=== PATIENT | female | born 1970 | race Caucasian/White ===

== ENCOUNTER 2018-03-08 15:56 | Inpatient (IN) | payer MEDICAID ==
[~2018-03-08] VITALS: Ht 175.3 cm; Wt 83.9 kg
--- NOTE | ~2018-03-08 | MORECARE ---
CASE MANAGEMENT DISCHARGE SUMMARY PATIENT: SANCHEZ BONILLA DANDY UNIT: [id number] ADM DATE: 03/08/18 AGE: 47 : 70 SEX: F ROOM/BED: D.7221 AUTHOR: DEYANIRA,DOC PHYSICIAN: REFERRING PHYSICIAN: FRANKY ELDRIDGE MD DATE OF SERVICE: 03/10/18 Discharge Plan Patient Name: SANCHEZ BONILLA Facility: [facility]:[employer] : 1970 Planned Disposition: Home Anticipated Discharge Date: 03/10/18 Discharge Date: Expected LOS: 2 Initial Reviewer: [email or web address] Initial Review Date: 03/10/2018 Generated: 03/10/18 5:29 pm Comments DCP- Discharge Planning Updated by [email or web address]: Gabriel Naidu on 03/10/18 3:[address] Patient Name: SANCHEZ BONILLA Admission Status: Elective Accout number: [id number] Admission Date: 03-08-2018 : 1970 Admission Diagnosis: Attending: FRANKY ELDRIDGE Current LOS: 2 Anticipated DC Date: 03-10-2018 Planned Disposition: Home [facility] Discharge Planning Comments: CM MET WITH PT IN ROOM TO DISCUSS DISCHARGE PLANNING AND NEEDS. PT REPORTS LIVING AT HOME INDEPENDENTLY WITH HER BOYFRIEND, STEVEN, . PT HAS NO MEDICAL EQUIPMENT AND NO OUTSIDE SERVICES ASSISTING IN THE HOME. CM DISCUSSED AVAILABILITY OF HOME HEALTH, REHAB SERVICES AND MEDICAL EQUIPMENT. PT DENIES DISCHARGE NEEDS, REPORTS HER BOYFRIEND WILL PICK HER UP FOR DISCHARGE HOME. Change Person: Gabriel Naidu DCPIA - Discharge Planning Initial Assessment Updated by [email or web address]: Gabriel Naidu on 03/10/18 4:23 pm * Is the patient Alert and Oriented? Yes * How many steps to enter\exit or inside your home? * PCP DR. ELDRIDGE * Pharmacy [facility] * Preadmission Environment Home with Family * ADLs Independent * Equipment None * Other Equipment NO MEDICAL EQUIPMENT PROVIDER PREFERENCE * List name and contact numbers for known caregivers / representatives who currently or will assist patient after discharge: STEVEN GERMAN, SPOUSE, CJ WEBB, DTR, * Verbal permission to speak to the caregivers and representatives has been obtained from the patient. N/A * Community resources currently utilized None * Please name any agencies selected above. NONE * Additional services required to return to the preadmission environment? No * Can the patient safely return to the preadmission environment? Yes * Has this patient been hospitalized within the prior 30 days at any hospital? No Patient Name: SANCHEZ BONILLA Page [id number] at 1629 All edits/amendments must be made on the electronic document DICTATION DATE: 03/10/181627 TASSEL MAKING MACHINE OPERATOR: NELSON 03/10/181627 RPT#: [id number] DC DATE: STATUS: ADM IN [facility] [address] [place] [address] END OF REPORT
[2018-03-08] MEDS ORDERED: BENTYL10 MG PO (17:36)
[2018-03-08] MEDS ORDERED: NORCO 5/325 TAB1 TAB PO (17:38)
[2018-03-08] MEDS ORDERED: FLAGYL500 MG PO (17:40)
[2018-03-08 17:58] LABS: BASOPHILS 0.3 % (0-2); EOSINOPHILS 1.6 % (0-7); HEMATOCRIT 38.6 % (36.0-48.0); HEMOGLOBIN 13.4 g/dL (12-16); IMMATURE GRANULOCYTES 0.3 % (0-5); MCH 29.1 pg (26.0-34.0); MCHC 34.7 g/dL (31.0-37.0); MCV 83.9 fL (80.0-100.0); MEAN PLATELET VOLUME 9.8 fL (7.4-10.4); MONOCYTES 12.6 % (2-11); NEUTROPHILS 66.2 % (40-80); PLATELET COUNT 317 10x3/uL (130-400); RDW 13.9 % (11.5-14.5); WBC 9.6 10x3/uL (4.8-10.8)
[2018-03-08 18:18] VITALS: BP 126/74; BMI 27.8
[2018-03-08 19:13] LABS: APPEARANCE HAZY (CLEAR); COLOR YELLOW (YELLOW); SPECIFIC GRAVITY 1.025 (1.005-1.020)
[2018-03-08 19:14] LABS: BILIRUBIN NEGATIVE (NEGATIVE); GLUCOSE NEGATIVE (NEGATIVE); KETONE NEGATIVE (NEGATIVE); NITRITE NEGATIVE (NEGATIVE); PROTEIN TRACE mg/dL (NEGATIVE); UROBILINOGEN NORMAL (NORMAL)
[2018-03-08 19:15] LABS: BACTERIA MODERATE /hpf (NONE SEEN); EPITHELIAL CELLS 0-5 /hpf (0-5); RED CELLS - URINE >50 /hpf (0-5); WHITE CELLS - URINE 25-50 /hpf (0-5)
[2018-03-08 20:00] VITALS: BP 138/91
[2018-03-08 20:10] LABS: ALBUMIN 3.4 g/dL (3.4-5.0); ALKALINE PHOSPHATASE 63 U/L (46-116); ALT (SGPT) 24 U/L (10-68); CALC OSMOLALITY 275 mosm/kg (275-300); CALCIUM 9.1 mg/dL (8.5-10.1); CARBON DIOXIDE 27.8 mmol/L (21.0-32.0); CHLORIDE - SERUM 103 mmol/L (98-107); CREATININE - SERUM 0.7 mg/dL (0.6-1.3); GLUCOSE 100 mg/dL (74-106); POTASSIUM - SERUM 3.3 mmol/L (3.5-5.1); PROTEIN - SERUM 7.2 g/dL (6.4-8.2); SODIUM 139 mmol/L (136-145); UREA NITROGEN 7 mg/dL (7-18); eGFR NON AFRICAN AMERICAN > 90 mL/min (90-120)
[2018-03-09] VITALS (7 sets, daily range): BP systolic 121–156; BP diastolic 65–85; Ht 175.3 cm; Wt 83.9 kg
[2018-03-09 11:31] LABS: CALC OSMOLALITY 272 mosm/kg (275-300); CALCIUM 8.3 mg/dL (8.5-10.1); CARBON DIOXIDE 26.8 mmol/L (21.0-32.0); CHLORIDE - SERUM 103 mmol/L (98-107); CREATININE - SERUM 0.7 mg/dL (0.6-1.3); GLUCOSE 113 mg/dL (74-106); POTASSIUM - SERUM 3.4 mmol/L (3.5-5.1); SODIUM 137 mmol/L (136-145); UREA NITROGEN 6 mg/dL (7-18); eGFR NON AFRICAN AMERICAN > 90 mL/min (90-120)
[2018-03-09 11:34] LABS: BASOPHILS 0.7 % (0-2); EOSINOPHILS 3.4 % (0-7); HEMATOCRIT 36.9 % (36.0-48.0); HEMOGLOBIN 12.5 g/dL (12-16); IMMATURE GRANULOCYTES 0.4 % (0-5); LYMPHOCYTES 33.9 % (15-50); MCH 28.8 pg (26.0-34.0); MCHC 33.9 g/dL (31.0-37.0); MEAN PLATELET VOLUME 9.8 fL (7.4-10.4); MONOCYTES 8.4 % (2-11); NEUTROPHILS 53.2 % (40-80); PLATELET COUNT 291 10x3/uL (130-400); RBC 4.34 10x6/uL (4.00-5.40)
[2018-03-09 11:37] LABS: WBC 5.6 10x3/uL (4.8-10.8)
[2018-03-10 01:16] VITALS: BP 144/81
[2018-03-10 05:36] LABS: BASOPHILS 0.5 % (0-2); EOSINOPHILS 3.4 % (0-7); HEMATOCRIT 34.9 % (36.0-48.0); HEMOGLOBIN 11.8 g/dL (12-16); IMMATURE GRANULOCYTES 0.3 % (0-5); LYMPHOCYTES 28.7 % (15-50); MCH 28.6 pg (26.0-34.0); MCHC 33.8 g/dL (31.0-37.0); MCV 84.5 fL (80.0-100.0); MEAN PLATELET VOLUME 9.7 fL (7.4-10.4); MONOCYTES 10.3 % (2-11); NEUTROPHILS 56.8 % (40-80); PLATELET COUNT 274 10x3/uL (130-400); RBC 4.13 10x6/uL (4.00-5.40); WBC 6.2 10x3/uL (4.8-10.8)
[2018-03-10 05:50] VITALS: BP 124/72
[2018-03-10 05:58] LABS: CALC OSMOLALITY 273 mosm/kg (275-300); CALCIUM 8.7 mg/dL (8.5-10.1); CARBON DIOXIDE 26.5 mmol/L (21.0-32.0); CHLORIDE - SERUM 105 mmol/L (98-107); CREATININE - SERUM 0.7 mg/dL (0.6-1.3); GLUCOSE 102 mg/dL (74-106); POTASSIUM - SERUM 3.9 mmol/L (3.5-5.1); SODIUM 138 mmol/L (136-145); UREA NITROGEN 6 mg/dL (7-18); eGFR NON AFRICAN AMERICAN > 90 mL/min (90-120)
[2018-03-10 09:17] VITALS: BP 139/72
[2018-03-10 11:12] VITALS: BP 130/80
[2018-03-10] MEDS ORDERED: LEVAQUIN750 MG PO (11:34)
[2018-03-10] MEDS ORDERED: FLAGYL500 MG PO (11:34)
[2018-03-10 15:13] VITALS: BP 140/88
== END 2018-03-10 17:20 | disposition home or self-care (01) | DRG 392 ==
LOC: D.ER 15:56 → D.M2 16:12
PROVIDERS: Family Medicine; Internal Medicine Gastroenterology; Internal Medicine Nephrology
PROC: 0DBK8ZZ Excision of Ascending Colon, Via Natural or Artificial Opening Endoscopic (ICD-10-PCS; 2018-03-10)
PROC: 0DBE8ZX Excision of Large Intestine, Via Natural or Artificial Opening Endoscopic, Diagnostic (ICD-10-PCS; principal; 2018-03-10 11:15)
DX: A09 Infectious gastroenteritis and colitis, unspecified (principal); N39.0 Urinary tract infection, site not specified; E87.6 Hypokalemia; K58.9 Irritable bowel syndrome, unspecified; J45.909 Unspecified asthma, uncomplicated; R19.4 Change in bowel habit; K63.5 Polyp of colon